=== PATIENT | female | born 1990 | race Asian ===

== ENCOUNTER 2017-06-30 04:57 | Inpatient (IN) | payer OTHER ==
[~2017-06-30] VITALS: Ht 160 cm; Wt 81.8 kg
[2017-06-30] VITALS (29 sets, daily range): BP systolic 97–143; BP diastolic 51–89
[2017-06-30 07:54] LABS: EOSINOPHIL (%) 0.9 % (0-5); EOSINOPHIL COUNT 0.1 K/uL (0-0.3); HEMATOCRIT 28.4 % (36.0-46.0); IMMATURE GRANULOCYTE (%) 0.6 % (0.0-0.7); IMMATURE GRANULOCYTE COUNT 0.1 K/uL; INSTRUMENT ABS NEUTROPHIL CT 7.1 K/uL; LYMPHOCYTE COUNT 2.2 K/uL (1.0-2.8); MCH 26.7 PG (29.0-34.0); MCHC 31.7 G/DL (30.0-36.0); MCV 84.3 FL (83-99); MEAN PLAT.VOLUME 9.6 uM^3 (9.5-12.4); MONOCYTE (%) 6.4 % (3-12); MONOCYTE COUNT 0.7 K/uL (0-0.8); NEUTROPHIL (%) 70.1 % (45-76); NEUTROPHIL COUNT 7.1 K/uL (1.8-6.4); PLATELET COUNT 241 K/uL (156-360); RBC DIS.WIDTH-CV 14.8 % (11.8-14.6); RBC DIS.WIDTH-SD 45.1 % (39-53); RED BLOOD COUNT 3.37 M/uL (3.80-5.20); WHITE BLOOD COUNT 10.1 K/uL (4.1-10.2)
[2017-07-01] VITALS (11 sets, daily range): BP systolic 93–120; BP diastolic 43–73
[2017-07-02 05:40] LABS: EOSINOPHIL (%) 1.2 % (0-5); EOSINOPHIL COUNT 0.2 K/uL (0-0.3); HEMATOCRIT 23.9 % (36.0-46.0); IMMATURE GRANULOCYTE (%) 0.6 % (0.0-0.7); IMMATURE GRANULOCYTE COUNT 0.1 K/uL; INSTRUMENT ABS NEUTROPHIL CT 9.1 K/uL; LYMPHOCYTE COUNT 2.9 K/uL (1.0-2.8); MCHC 32.6 G/DL (30.0-36.0); MCV 85.7 FL (83-99); MEAN PLAT.VOLUME 9.4 uM^3 (9.5-12.4); MONOCYTE (%) 6.6 % (3-12); MONOCYTE COUNT 0.9 K/uL (0-0.8); NEUTROPHIL (%) 69.3 % (45-76); NEUTROPHIL COUNT 9.1 K/uL (1.8-6.4); PLATELET COUNT 212 K/uL (156-360); RBC DIS.WIDTH-CV 15.1 % (11.8-14.6); RBC DIS.WIDTH-SD 46.8 % (39-53); RED BLOOD COUNT 2.79 M/uL (3.80-5.20); WHITE BLOOD COUNT 13.1 K/uL (4.1-10.2)
[2017-07-02 07:19] VITALS: BP 107/58
[2017-07-02] MEDS ORDERED: IBUPROFEN800 MG PO (12:42)
[2017-07-02] MEDS ORDERED: CHROMAGEN,1 CAPSULE PO (12:42)
== END 2017-07-02 17:40 | disposition home or self-care (01) | DRG 775 ==
LOC: LDRP-OP 04:57 → 2WEST 04:58 → LDRP-OP 07-31 15:18
PROVIDERS: Advanced Practice Midwife; Obstetrics & Gynecology
DX: O70.1 Second degree perineal laceration during delivery (principal); O34.219 Maternal care for unspecified type scar from previous cesarean delivery; O99.214 Obesity complicating childbirth; D50.9 Iron deficiency anemia, unspecified; E66.3 Overweight; Z3A.40 40 weeks gestation of pregnancy; Z37.0 Single live birth; Z68.25 Body mass index [BMI] 25.0-25.9, adult
CPT/HCPCS: 82306; 85025; 86850; 86900; 86901; C1726; C1755; G0378; J0595; J2405; J7120